=== PATIENT | female | born 1940 | race Caucasian/White ===

== ENCOUNTER 2017-04-24 13:31 | Emergency (ER) | payer OTHER ==
[~2017-04-24] VITALS: Ht 160 cm; Wt 112.5 kg
[~2017-04-24 13:31] MED LIST: BUMEX2 MG PO; CARAFATE1 GM PO; CENTRUM SILVER1 EAC3 PO; CIPRO500 MG PO; COQ-10100 MG PO; FLUOXETINE HCL60 MG PO; MEVACOR40 MG PO; PRILOSEC20 MG PO; TOPROL XL25 MG PO; VITAMIN D31000 UNIT PO
[2017-04-24 14:36] LABS: HEMATOCRIT 39.3 % (36.0-46.0); MCH 29.8 PG (29.0-34.0); MCHC 33.1 G/DL (30.0-36.0); MCV 90.1 FL (83-99); MEAN PLAT.VOLUME 9.8 uM^3 (9.5-12.4); PLATELET COUNT 234 K/uL (156-360); RBC DIS.WIDTH-CV 12.3 % (11.8-14.6); RBC DIS.WIDTH-SD 40.4 % (39-53); RED BLOOD COUNT 4.36 M/uL (3.80-5.20)
[2017-04-24 14:44] LABS: CHLORIDE 104 mEq/L (99-109); POTASSIUM 4.3 mEq/L (3.7-5.4); SODIUM 142 mEq/L (136-147)
[2017-04-24 14:46] LABS: GLUCOSE 102 mg/dL (70-99)
[2017-04-24 14:47] LABS: ANION GAP 9 MEQ/L (2-14)
[2017-04-24 14:50] LABS: GFR ESTIMATE (CALCULATED) > 59 mL/min/
[2017-04-24 14:51] LABS: UREA NITROGEN (BUN) 18 mg/dL (9-23)
[2017-04-24 16:34] VITALS: BP 145/50
== END 2017-04-24 16:35 | disposition home or self-care (01) ==
LOC: EME 13:31
PROVIDERS: Nurse Practitioner Family
DX: R60.0 Localized edema (principal); I10 Essential (primary) hypertension; E78.5 Hyperlipidemia, unspecified; Z79.01 Long term (current) use of anticoagulants; Z87.891 Personal history of nicotine dependence
CPT/HCPCS: 80048; 83880; 85027; 93971; 99281; 99284